=== PATIENT | male | born 1975 | race Caucasian/White ===

== ENCOUNTER → 2019-07-06 | Outpatient (CLI) | payer OTHER ==
--- NOTE | 2019-07-06 12:45 | Diagnostic Imaging Report ---
INDICATION: Right hip pain. COMPARISON: None. FINDINGS: Two views of the right hip were obtained and show no fractures, dislocations, or other acute bony abnormalities. Joint spaces are well maintained throughout. The soft tissues appear unremarkable. No radiopaque foreign bodies are identified. IMPRESSION: Unremarkable radiographic exam of the right hip. Dictated by: Dictated on workstation # [id number]
== END ==
LOC: RAD FS 09:41
PROVIDERS: ATTEND Nurse Practitioner
DX: M25.551 Pain in right hip (principal)
CPT/HCPCS: 73502

== ENCOUNTER → 2019-10-22 | Outpatient (CLI) | payer OTHER ==
[~2019-10-22] MED LIST: CATHETER FLUSH 10 ML SYR IV PRN; HOLD METFORMIN - RECEIVED CONTRAST 20 ML VIAL IV SCH; IOHEXOL 350 MG/ML 100 ML (OMNIPAQUE 350) VIAL IV ONE; NS 100 ML (IVPB) BAG IV ONE
--- NOTE | 2019-10-22 13:47 | Diagnostic Imaging Report ---
PROCEDURE: CT abdomen and pelvis with contrast. TECHNIQUE: Multiple contiguous axial images were obtained through the abdomen and pelvis after administration of intravenous contrast. Auto Exposure Controls were utilized during the CT exam to meet ALARA standards for radiation dose reduction. INDICATION: Lower abdominal pain for two days. COMPARISON: No prior studies are available for comparison. FINDINGS: The lung bases are clear. No discrete liver mass is detected. The gallbladder is unremarkable. No biliary ductal dilatation is detected. The pancreas and spleen are unremarkable. No adrenal mass is detected. Kidneys are unremarkable apart from a 17 mm cortical low density in the left kidney, suggestive of a cyst. The aorta is nonaneurysmal. No central retroperitoneal or mesenteric lymphadenopathy is identified. Bowel loops appear to be normal in caliber. No obstruction is seen. The appendix is visualized in the right lower quadrant and appears unremarkable. There is diverticulosis of the sigmoid colon. In addition, there appears to be moderate perisigmoidal inflammatory stranding. Features are consistent with acute diverticulitis. No definite abscess formation or bowel obstruction is seen. Small gas bubbles adjacent to the sigmoid are noted which could be gas within diverticula versus potentially microperforation. No free fluid is identified. The bladder is decompressed. IMPRESSION: 1. Findings consistent with acute sigmoid diverticulitis. No abscess formation or bowel obstruction is seen. There is questionable microperforation. No other abnormality is detected. Dictated by: Dictated on workstation # [id number]
== END ==
LOC: RAD FS 12:46
PROVIDERS: ATTEND Nurse Practitioner Family
DX: R10.31 Right lower quadrant pain (principal)
CPT/HCPCS: 74177

== ENCOUNTER → 2020-10-13 | Outpatient (CLI) | payer OTHER ==
--- NOTE | 2020-10-13 11:30 | Diagnostic Imaging Report ---
HISTORY: Right knee pain for 6 months. No known injury. COMPARISON: None. FINDINGS: Three views of the right knee demonstrate no acute fracture. An Endobutton is noted at the lateral femoral condyle. There are moderate to severe degenerative changes in the patellofemoral and medial compartments. There are moderate degenerative changes in the lateral compartment. No significant joint effusion is seen. IMPRESSION: Tricompartmental degenerative changes in the right knee with no acute osseous abnormality seen. Dictated by: Dictated on workstation # [id number]
== END ==
LOC: RAD FS 11:12
PROVIDERS: ATTEND Nurse Practitioner
DX: M17.11 Unilateral primary osteoarthritis, right knee (principal)
CPT/HCPCS: 73562

== ENCOUNTER 2021-06-19 22:24 | Emergency (ER) | payer OTHER ==
--- NOTE | 2021-06-19 22:41 | ED Abdominal Pain ---
General Chief Complaint: General Problems/Pain Stated Complaint: WEAKNESS,ABD ISSUES Nursing Triage Note: Pt complaining of nausea and body aches Source of Information: Patient, EMS Exam Limitations: No Limitations History of Present Illness Date Seen by Provider: Jun 19, 2021 Time Seen by Provider: 22:29 Initial Comments 45-year-old male with no significant past medical history coming in via EMS due to body aches, fever, abdominal pain, nausea. Abdominal pain is crampy, general, intermittent, slightly better now. Had some nausea without vomiting. Took Tylenol with last dose several hours ago. This did help somewhat. Illness started today around noon. He had COVID late May and has been feeling better since then. Has had diverticulitis in the past, but states this does not feel the same. Otherwise denies any chest pain, shortness of breath, vomiting, diarrhea, hematuria, hematochezia, focal weakness, numbness, rash, or any other concerns. Allergies and Home Medications Allergies Coded Allergies: No Allergy Information Available (Unverified , 10/22/19) Patient Home Medication List Home Medication List Reviewed: Yes Review of Systems Review of Systems Constitutional: chills, fever EENTM: No Blurred Vision Respiratory: Cough; Denies Shortness of Air Cardiovascular: Denies Chest Pain Gastrointestinal: Abdominal Pain; Denies Diarrhea; Nausea; Denies Vomiting Genitourinary: No Symptoms Reported Musculoskeletal: no symptoms reported Skin: no symptoms reported Psychiatric/Neurological: No Symptoms Reported Endocrine: No Symptoms Reported Hematologic/Lymphatic: No Symptoms Reported All Other Systems Reviewed Negative Unless Noted: Yes Past Aqzulxs-Rhpahn-Axmqsf Hx Patient Social History Tobacco Use?: No Use of E-Cig and/or Vaping dev: No Substance use?: No Alcohol Use?: No Pt feels they are or have been: No Past Medical History Surgeries: Yes (back surgery) Physical Exam Vital Signs Vital Signs - First Documented 06/19/21 22:24 Temp 38.5 Pulse 116 Resp 18 B/P (MAP) 144/119 (127) Pulse Ox 99 O2 Delivery Room Air Capillary Refill : Less Than 3 Seconds Height/Weight/BMI Height: '" Weight: lbs. oz. kg; BMI Method: General Appearance: WD/WN, no apparent distress HEENT: PERRL/EOMI, normal ENT inspection, pharynx normal Neck: non-tender, full range of motion, supple, normal inspection Respiratory: chest non-tender, lungs clear, normal breath sounds, no respiratory distress, no accessory muscle use Cardiovascular: regular rate, rhythm, no edema, no murmur Gastrointestinal: normal bowel sounds, non tender, soft; No distended, No guarding, No rebound Extremities: normal range of motion, non-tender, normal inspection, no pedal edema, no calf tenderness, normal capillary refill Back: normal inspection, no vertebral tenderness Neurologic/Psychiatric: no motor/sensory deficits, alert, normal mood/affect Skin: normal color, warm/dry Lymphatic: no adenopathy Progress/Results/Core Measures Results/Orders Lab Results Laboratory Tests Test 06/19/21 22:45 Range/Units White Blood Count 17.4 H 4.3-11.0 10^3/uL Red Blood Count 4.77 4.30-5.52 10^6/uL Hemoglobin 13.6 13.3-17.7 g/dL Hematocrit 42 40-54 % Mean Corpuscular Volume 88 80-99 fL Mean Corpuscular Hemoglobin 29 25-34 pg Mean Corpuscular Hemoglobin Concent 33 32-36 g/dL Red Cell Distribution Width 13.2 10.0-14.5 % Platelet Count 280 130-400 10^3/uL Mean Platelet Volume 9.7 9.0-12.2 fL Immature Granulocyte % (Auto) 1 % Neutrophils (%) (Auto) 91 H 42-75 % Lymphocytes (%) (Auto) 4 L 12-44 % Monocytes (%) (Auto) 4 0-12 % Eosinophils (%) (Auto) 0 0-10 % Basophils (%) (Auto) 0 0-10 % Neutrophils # (Auto) 15.8 H 1.8-7.8 X 10^3 Lymphocytes # (Auto) 0.7 L 1.0-4.0 X 10^3 Monocytes # (Auto) 0.8 0.0-1.0 X 10^3 Eosinophils # (Auto) 0.0 0.0-0.3 10^3/uL Basophils # (Auto) 0.0 0.0-0.1 10^3/uL Immature Granulocyte # (Auto) 0.1 0.0-0.1 10^3/uL Neutrophils % (Manual) 93 % Lymphocytes % (Manual) 2 % Monocytes % (Manual) 3 % Band Neutrophils 1 % Atypical Lymphocytes 1 % Toxic Granulation 3+ Platelet Estimate NORMAL Blood Morphology Comment NORMAL Urine Color YELLOW Urine Clarity CLEAR Urine pH 7.0 5-9 Urine Specific [place] 1.015 L 1.016-1.022 Urine Protein NEGATIVE NEGATIVE Urine Glucose (UA) NEGATIVE NEGATIVE Urine Ketones 1+ H NEGATIVE Urine Nitrite NEGATIVE NEGATIVE Urine Bilirubin NEGATIVE NEGATIVE Urine Urobilinogen 0.2 < = 1.0 MG/DL Urine Leukocyte Esterase NEGATIVE NEGATIVE Urine RBC (Auto) NEGATIVE NEGATIVE Urine RBC RARE /HPF Urine WBC RARE /HPF Urine Squamous Epithelial Cells RARE /HPF Urine Crystals NONE /LPF Urine Bacteria NEGATIVE /HPF Urine Casts NONE /LPF Urine Mucus NEGATIVE /LPF Urine Culture Indicated NO Sodium Level 137 135-145 MMOL/L Potassium Level 4.5 3.6-5.0 MMOL/L Chloride Level 102 98-107 MMOL/L Carbon Dioxide Level 21 21-32 MMOL/L Anion Gap 14 5-14 MMOL/L Blood Urea Nitrogen 10 7-18 MG/DL Creatinine 0.99 0.60-1.30 MG/DL Estimat Glomerular Filtration Rate 96 BUN/Creatinine Ratio 10 Glucose Level 112 H 70-105 MG/DL Calcium Level 9.2 8.5-10.1 MG/DL Corrected Calcium 8.9 8.5-10.1 MG/DL Total Bilirubin 0.8 0.1-1.0 MG/DL Aspartate Amino Transf (AST/SGOT) 43 H 5-34 U/L Alanine Aminotransferase (ALT/SGPT) 40 0-55 U/L Alkaline Phosphatase 62 40-136 U/L C-Reactive Protein 2.10 H <0.50 MG/DL Total Protein 7.9 6.4-8.2 GM/DL Albumin 4.4 3.2-4.5 GM/DL Lipase 37 8-78 U/L Influenza Type A Antigen NEGATIVE NEGATIVE Influenza Type B Antigen NEGATIVE NEGATIVE My Orders Orders - MINDI LOCK MD Cbc With Automated Diff (06/19/21 22:37) Comprehensive Metabolic Panel (06/19/21 22:37) Lipase (06/19/21 22:37) Ua Culture If Indicated (06/19/21 22:37) Crp Fs (06/19/21 22:37) Influenza A & B Antigens (06/19/21 22:37) Ed Iv/Invasive Line Start (06/19/21 22:37) Lactated Ringers (Lr 1000 Ml Iv Solution (06/19/21 22:45) Ondansetron Injection (Zofran Injectio (06/19/21 22:45) Ketorolac Injection (Toradol Injection) (06/19/21 22:45) Manual Differential (06/19/21 22:45) Medications Given in ED Current Medications Medications Dose Ordered Sig/Shanon Route Start Time Stop Time Status Last Admin Dose Admin Ketorolac Tromethamine 15 mg ONCE ONCE IVP 06/19/21 22:45 06/19/21 22:46 DC 06/19/21 22:50 15 MG Lactated Ringer's 1,000 ml @ 0 mls/hr Q0M ONCE IV 06/19/21 22:45 06/19/21 22:46 DC 06/19/21 22:50 999 MLS/HR Ondansetron HCl 4 mg ONCE ONCE IVP 06/19/21 22:45 06/19/21 22:46 DC 06/19/21 22:50 4 MG Vital Signs/I&O 06/19/21 22:24 Temp 38.5 Pulse 116 Resp 18 B/P (MAP) 144/119 (127) Pulse Ox 99 O2 Delivery Room Air Blood Pressure Mean: 127 Progress Progress Note : Progress Note 45-year-old male with above history coming in due to body aches with some abdominal cramping. ABCs were intact and vitals stable on presentation. Physical exam reassuring with a soft and nontender abdomen. Vitals also reassuring. An IV was placed and basic labs were obtained, he was given a bolus of IV fluids as well as Toradol. He says he is feeling almost 100% better after that. The only abnormalities on his labs are his white count is slightly elevated at 17. I did a repeat abdominal exam which continues to be soft and nontender. I discussed with the patient he likely has something viral, but something in his abdomen is unable to be fully excluded. We discussed the risk versus benefits of a CT scan of his abdomen and pelvis, and at this time he does not believe that anything serious is going on. I agree with this as his symptoms seem to be more global and viral in nature. Likely has a flulike illness. Possibly has a COVID variant with repeat infection soon after his previous. I would recommend symptomatic treatment and strict return precautions. Departure Impression Primary Impression: Flu-like symptoms Disposition: HOME, SELF-CARE Condition: Stable Departure-Patient Inst. Decision time for Depature: 00:21 Referrals: NO,LOCAL PHYSICIAN (PCP/Family) Primary Care Physician Patient Instructions: Flu Add. Discharge Instructions: You likely have a flulike illness which could be a strain of influenza or the new variant of COVID. Take ibuprofen 600 mg every 6 hours as well as Tylenol 1000 mg every 6-8 hours. Drink plenty of fluids. I have sent nausea meds to your pharmacy if you need them. Drink plenty of fluids. If you have severe abdominal pain, or any concerns then please come back to the ER. Scripts Ondansetron (Ondansetron Odt) 4 Mg Tab.rapdis 4 MG PO Q6H PRN for NAUSEA/VOMITING-1ST LINE for 5 Days, #20 TAB Prov: MINDI LOCK MD 06/20/21 Work/School Note: Work Release Form Date Seen in the Emergency Department: Jun 20, 2021 Return to Work: Jun 21, 2021 Restrictions: Return-No Fever (24hrs) MINDI LOCK MD Jun 19, 2021 22:41
[2021-06-19] MEDS ORDERED: ONDANSETRON 4 MG/2 ML (SDV) Z0FRAN IVP ONE (22:45)
[2021-06-19] MEDS ORDERED: LACTATED RINGERS 1,000 ML IV ONE (22:45)
[2021-06-19] MEDS ORDERED: KETOROLAC 30 MG/ML VIAL IVP ONE (22:45)
[2021-06-19 23:00] LABS: BILIRUBIN,URINE NEGATIVE (NEGATIVE); CLARITY,URINE CLEAR; COLOR,URINE YELLOW; GLUCOSE, URINE (UA) NEGATIVE (NEGATIVE); KETONES,URINE 1+ (NEGATIVE); LEUKOCYTE ESTERASE ,URINE NEGATIVE (NEGATIVE); NITRITE,URINE NEGATIVE (NEGATIVE); PROTEIN,URINE NEGATIVE (NEGATIVE)
[2021-06-19 23:40] LABS: WHITE BLOOD COUNT 17.4 10^3/uL (4.3-11.0)
[2021-06-19 23:41] LABS: HEMATOCRIT 42 % (40-54); HEMOGLOBIN 13.6 g/dL (13.3-17.7); MEAN CORPUSCULAR HEMOGLOBIN 29 pg (25-34); MEAN CORPUSCULAR HGB CONC 33 g/dL (32-36); MEAN CORPUSCULAR VOLUME 88 fL (80-99)
[2021-06-19 23:42] LABS: BASOPHILS % (AUTO) 0 % (0-10); EOSINOPHILS % (AUTO) 0 % (0-10); LYMPHOCYTES # (AUTO) 0.7 X 10^3 (1.0-4.0); LYMPHOCYTES % (AUTO) 4 % (12-44); MEAN PLATELET VOLUME 9.7 fL (9.0-12.2); MONOCYTES # (AUTO) 0.8 X 10^3 (0.0-1.0); MONOCYTES % (AUTO) 4 % (0-12); NEUTROPHILS # (AUTO) 15.8 X 10^3 (1.8-7.8); NEUTROPHILS % (AUTO) 91 % (42-75); PLATELET COUNT 280 10^3/uL (130-400)
[2021-06-19 23:50] LABS: POTASSIUM 4.5 MMOL/L (3.6-5.0)
[2021-06-19 23:51] LABS: ALBUMIN 4.4 GM/DL (3.2-4.5); BILIRUBIN,TOTAL 0.8 MG/DL (0.1-1.0); CALCIUM 9.2 MG/DL (8.5-10.1); CREATININE SERUM 0.99 MG/DL (0.60-1.30); TOTAL PROTEIN 7.9 GM/DL (6.4-8.2)
[2021-06-20 00:03] LABS: BACTERIA,URINE NEGATIVE /HPF; RBC,URINE RARE /HPF; SQUAMOUS EPITHELIAL CELL,UR RARE /HPF; WBC,URINE RARE /HPF
[2021-06-20 00:10] LABS: ATYPICAL LYMPHOCYTES 1 %; BAND NEUTROPHILS 1 %; LYMPHOCYTES % (MANUAL) 2 %; MONOCYTES % (MANUAL) 3 %; NEUTROPHILS % (MANUAL) 93 %; PLATELET ESTIMATE NORMAL; RBC MORPH NORMAL; TOXIC GRANULATION/VACUOLAZATIO 3+
[2021-06-20] MEDS ORDERED: ONDA4TAB11 PO (00:23)
[2021-06-20 00:28] VITALS: BP 138/98
== END 2021-06-20 00:28 | disposition home or self-care (01) ==
LOC: EDUNIT# 22:24 → ER FS 22:25
DX: J11.1 Influenza due to unidentified influenza virus with other respiratory manifestations (principal); Z86.16 Personal history of COVID-19
CPT/HCPCS: 36415; 80053; 81000; 83690; 85007; 85027; 86141; 87804; 96374; 96375

== ENCOUNTER 2021-08-30 09:32 | Outpatient (CLI) | payer OTHER ==
[~2021-08-30 09:32] MED LIST changes: -CATHETER FLUSH 10 ML SYR IV PRN; -HOLD METFORMIN - RECEIVED CONTRAST 20 ML VIAL IV SCH; -IOHEXOL 350 MG/ML 100 ML (OMNIPAQUE 350) VIAL IV ONE; -NS 100 ML (IVPB) BAG IV ONE
== END 2021-08-30 10:25 ==
LOC: SLEEP 09:32
PROVIDERS: ATTEND Internal Medicine Cardiovascular Disease
DX: G47.33 Obstructive sleep apnea (adult) (pediatric) (principal); I10 Essential (primary) hypertension
CPT/HCPCS: G0399

== ENCOUNTER 2021-08-30 11:30 | Outpatient (RCR) | payer OTHER ==
[~2021-08-30 11:30] MED LIST changes: +HOLD METFORMIN - RECEIVED CONTRAST 20 ML VIAL IV SCH; +IOHEXOL 350 MG/ML 100 ML (OMNIPAQUE 350) VIAL IV ONE; +NS 100 ML (IVPB) BAG IV ONE
== END 2021-08-31 | disposition home or self-care (01) ==
LOC: CARD 11:30
PROVIDERS: ATTEND Internal Medicine Cardiovascular Disease
DX: I49.9 Cardiac arrhythmia, unspecified (principal)

== ENCOUNTER → 2021-08-30 | Outpatient (CLI) | payer OTHER ==
[~2021-08-30] MED LIST changes: +ONDA4TAB11 PO
--- NOTE | 2021-08-30 11:54 | Diagnostic Imaging Report ---
EXAMINATION: CT angiography of the chest. TECHNIQUE: Contrast enhanced thin section helical images were obtained through the chest with intravenous contrast timed for the optimal opacification of the arterial structures per CTA protocol. Post-processing, reconstructions and interpretation of angiographic images of the vessels was performed. 3D MIP reconstructions were performed and reviewed. All CT scans use one or more of the following dose optimizing techniques: automated exposure control, MA and/or KvP adjustment based on a patient size and exam type, or iterative reconstruction. HISTORY: ANEURYSM OF THORACIC AORTA COMPARISON: None available. FINDINGS: Vascular: There is mild aneurysmal dilatation of the aortic root measuring up to 4 cm. No dissection or stenosis. No filling defects are seen within the visualized pulmonary arteries. Thyroid: The thyroid is normal. Mediastinum: Heart size is normal without significant pericardial effusion. No suspicious lymphadenopathy. Lungs and airways: The lungs are clear without consolidation, pleural effusion, or pneumothorax. No suspicious pulmonary nodule. The airways are normal. Upper abdomen: The subphrenic structures are normal. Musculoskeletal: Degenerative changes of the spine without suspicious osseous lesion or compression fracture. IMPRESSION: 1. Mild aneurysmal dilatation of the ascending thoracic aorta at the aortic root measuring up to 4.0 cm. No dissection or stenosis. 2. No other acute abnormality in the chest. Dictated by: Dictated on workstation # [id number]
== END ==
LOC: RAD 09:28
PROVIDERS: ATTEND Internal Medicine Cardiovascular Disease
DX: I71.2 Thoracic aortic aneurysm, without rupture (principal)
CPT/HCPCS: 71275

== ENCOUNTER → 2021-10-11 | Outpatient (CLI) | payer OTHER ==
[~2021-10-11] VITALS: Ht 190 cm; Wt 154.0 kg
[~2021-10-11] MED LIST changes: +CATHETER FLUSH 10 ML SYR IVP PRN; -HOLD METFORMIN - RECEIVED CONTRAST 20 ML VIAL IV SCH; -IOHEXOL 350 MG/ML 100 ML (OMNIPAQUE 350) VIAL IV ONE; -NS 100 ML (IVPB) BAG IV ONE; +REGADENOSON 0.4 MG/5 ML SYR (LEXISCAN) IV ONE
[2021-10-11 09:45] VITALS: BP 146/104
--- NOTE | 2021-10-11 14:32 | Cardiology Stress Test Report ---
Stress Test Report Date of Procedure/Referring: Date of Procedure: October 11, 2021 Jessica Falcon Admitting Physician Catracho Nair Aprn Indications: Chest pain Baseline Heart Rate: 67 Baseline Blood Pressure: Blood Pressure Systolic: 146 Blood Pressure Diastolic: 104 Baseline Vitals Vital Signs Date Time Temp Pulse Resp B/P (MAP) Pulse Ox O2 Delivery O2 Flow Rate FiO2 10/11/21 09:45 67 17 146/104 (118) 99 Room Air Baseline EKG: Baseline EKG: NSR Summary After explaining the procedure to the patient, he signed a consent and then brought to the stress nuclear laboratory. Patient received 0.4 mg Lexiscan for stress test, ECG, heart rate and blood pressure were monitored continuously. Resting and stress dose of radio tracer were injected, imaging was acquired and reviewed in short axis, horizontal long axis and vertical long axis views. TID: 1.13 SSS: 0 SDS: 0 EF: 50 1. Patient tolerated Lexiscan well 2. Motion artifact with diaphragmatic attenuation affecting the quality of the images. There is a fixed defect at the apex with mild decrease uptake at the mid anterior wall and mid inferior wall with subtle reversibility. Overall there is no significant ischemia or infarction was noted but the study is borderline nondiagnostic due to the artifacts. 3. Normal left ventricular size, ejection fraction 50% ERIN SWANSON MD October 11, 2021 14:32
== END ==
LOC: CARD 08:30
PROVIDERS: ATTEND Physician Assistant
DX: R07.9 Chest pain, unspecified (principal)
CPT/HCPCS: 78452; 93017; A9502